=== PATIENT | male | born 1945 | race Caucasian/White ===

== ENCOUNTER → 2019-04-30 | Outpatient (CLI) | payer OTHER ==
[~2019-04-30] MED LIST: FISH1000 OR; GINKGO BILOBA OR; LISI10TA4 OR; PEGASYS SC; VITAMIN C OR; ZEST10TA OD; ZINC220C OR; [UNRECOGNIZED DRUG - OTHER] OR; [UNRECOGNIZED DRUG - OTHER] OR
--- NOTE | 2019-04-30 08:17 | REP ---
Clinical: Hepatitis C. Technique: Real time gold scale ultrasound examination using curved array transducer. Findings: The liver suggests mild fatty infiltration without focal hepatic lesion. The pancreas is unremarkable. Gallbladder is normal and without gallstones, wall thickening, or pericholecystic fluid. No biliary ductal dilatation is appreciated and the common bile duct measures 4.4 mm diameter. The right kidney is normal in reniform shape without hydronephrosis and measures 11.7 x 6.1 x 5.9 cm. Impression: Mild fatty infiltration to the liver suggested. Electronically Signed by Stalin Del Castillo MD 04/30/2019 08:08 A
== END ==
LOC: M RAD 07:12
PROVIDERS: ATTEND Family Medicine
DX: K76.9 Liver disease, unspecified (principal)

== ENCOUNTER 2023-09-09 11:58 | Inpatient (IN) | payer MEDICARE, OTHER ==
[~2023-09-09] VITALS: Ht 175.3 cm; Wt 77.4 kg
[2023-09-09] MEDS ORDERED: METO1TAB32 PO (12:15)
[2023-09-09] MEDS ORDERED: SIMV40TA20 PO (12:15)
[2023-09-09] MEDS: NS 500 ML IV ONE (14:11)
[2023-09-09 14:18] LABS: BASO % 0.2 % (0.0-1.0); EOS # 0.1 10^3/uL (0.0-0.5); EOS % 2.1 % (0.0-3.0); LYMPH # 1.2 10^3/uL (1.5-5.0); LYMPH % 27.8 % (24.0-44.0); MEAN CORPUSCULAR HGB CONC 32.6 g/dl (32.0-36.5); MEAN CORPUSCULAR VOLUME 95.1 fl (80.0-96.0); MONO # 0.6 10^3/uL (0.0-0.8); MONO % 12.6 % (2.0-8.0); NEUTROPHILS # 2.5 10^3/uL (1.5-8.5); NEUTROPHILS % 57.1 % (36.0-66.0); PLATELET COUNT, AUTOMATED 197 10^3/uL (150-450); RED BLOOD COUNT 4.52 10^6/uL (4.30-6.10); WHITE BLOOD COUNT 4.4 10^3/uL (4.0-10.0)
[2023-09-09 14:43] LABS: ALBUMIN 3.4 G/DL (3.2-5.2); ALKALINE PHOSPHATASE 89 U/L (46-116); ALT/SGPT 23 U/L (7.0-40); AST/SGOT 35 U/L (<34); BILIRUBIN,DIRECT 0.1 MG/DL (<0.4); BILIRUBIN,TOTAL 0.3 MG/DL (0.3-1.2); BLOOD UREA NITROGEN 16 MG/DL (9-23); CALCIUM LEVEL 8.8 MG/DL (8.3-10.6); CARBON DIOXIDE LEVEL 29 MMOL/L (20-31); CHLORIDE LEVEL 105 MMOL/L (98-107); CK-MB VALUE MASS 1.3 NG/ML (<3.6); CPK CREATINE PHOSPHOKINASE 56 U/L (46-171); CREATININE FOR GFR 0.72 MG/DL (0.70-1.30); GLOMERULAR FILTRATION RATE > 60.0 (>42); GLUCOSE, FASTING 89 MG/DL (74-106); MB/CK RELATIVE INDEX 2.32 (< OR =4); POTASSIUM SERUM 4.6 MMOL/L (3.5-5.1); SODIUM LEVEL 135 MMOL/L (136-145)
[2023-09-09] MEDS: IPRATROPIUM 0.5MG/ALBUTEROL 2.5MG INH SOL UD 3ML (DUONEB) NEB ONE (14:44)
[2023-09-09 14:45] LABS: THYROXINE (T4) 6.9 UG/DL (4.5-10.9)
[2023-09-09 14:55] LABS: PROCALCITONIN <0.04 ng/ml
[2023-09-09 18:02] VITALS: BP 152/76; TEMP 97.4; O2SAT 98
[2023-09-09] MEDS ORDERED: ODOR100T3 PO (18:12)
[2023-09-09] MEDS ORDERED: EQL50TAB2 PO (18:12)
[2023-09-09] MEDS ORDERED: CHEL50TA2 PO (18:12)
[2023-09-09] MEDS ORDERED: VITA100065 PO (18:12)
[2023-09-09] MEDS ORDERED: VITA200016 PO (18:12)
[2023-09-09] MEDS ORDERED: CO Q10CA PO (18:12)
[2023-09-09] MEDS ORDERED: SYNT50TA PO (18:12)
[2023-09-09] MEDS ORDERED: LISI5TAB11 PO (18:12)
[2023-09-09] MEDS ORDERED: FISH1CAP26 PO (18:12)
[2023-09-09] MEDS ORDERED: MULT-90 PO (18:12)
[2023-09-09] MEDS ORDERED: HOME MED LIST COMPLETE! XX SCH (18:25)
[2023-09-09] MEDS: ALBUTEROL SULFATE 2.5MG/0.5ML INH NEB SOLN NEB SCH (18:59)
[2023-09-09 19:37] VITALS: BP 164/72; TEMP 97.8; O2SAT 99
[2023-09-09] MEDS: SIMVASTATIN 20 MG TAB PO SCH (20:23)
[2023-09-09] MEDS: HEPARIN SOD (PORCINE) 5000UNITS/ML 1ML VIAL/SYRINGE SC SCH (21:29)
[2023-09-09 23:26] VITALS: BP 158/71; TEMP 97.1; O2SAT 99
[2023-09-09] MEDS: BENZONATATE 100MG CAPSULE PO ONE (23:28)
[2023-09-10 03:50] VITALS: BP 157/72; TEMP 97.8; O2SAT 97
[2023-09-10 05:10] LABS: HEMATOCRIT 40.6 % (42.0-52.0); HEMOGLOBIN 13.3 g/dl (13.5-17.5); MEAN CORPUSCULAR HEMOGLOBIN 31.1 pg (27.0-33.0); MEAN CORPUSCULAR HGB CONC 32.8 g/dl (32.0-36.5); MEAN CORPUSCULAR VOLUME 95.1 fl (80.0-96.0); PLATELET COUNT, AUTOMATED 198 10^3/uL (150-450); RED BLOOD COUNT 4.27 10^6/uL (4.30-6.10); WHITE BLOOD COUNT 4.7 10^3/uL (4.0-10.0)
[2023-09-10 05:29] LABS: BLOOD UREA NITROGEN 10 MG/DL (9-23); CALCIUM LEVEL 8.5 MG/DL (8.3-10.6); CARBON DIOXIDE LEVEL 29 MMOL/L (20-31); CHLORIDE LEVEL 106 MMOL/L (98-107); CREATININE FOR GFR 0.66 MG/DL (0.70-1.30); GLOMERULAR FILTRATION RATE > 60.0 (>42); GLUCOSE, FASTING 98 MG/DL (74-106); POTASSIUM SERUM 4.2 MMOL/L (3.5-5.1); SODIUM LEVEL 140 MMOL/L (136-145)
[2023-09-10 07:38] VITALS: BP 152/58; TEMP 97; O2SAT 100
[2023-09-10] MEDS: guaiFENesin ER TABLET 600 MG TAB PO SCH (09:54)
[2023-09-10 12:00] VITALS: BP 137/63; TEMP 97.2; O2SAT 99
[2023-09-10 16:00] VITALS: TEMP 97.8; O2SAT 96
[2023-09-10 19:51] VITALS: BP 148/72; TEMP 97.3; O2SAT 95
[2023-09-10 23:37] VITALS: BP 142/65; TEMP 97.8; O2SAT 98
[2023-09-11 03:33] VITALS: BP 144/66; TEMP 97; O2SAT 99
[2023-09-11] MEDS: LR 1,000 ML IV SCH (06:36)
[2023-09-11 08:10] VITALS: BP 140/60; TEMP 97.1; O2SAT 97
[2023-09-11] MEDS ORDERED: IPRATROPIUM 0.5MG/ALBUTEROL 2.5MG INH SOL UD 3ML (DUONEB) As Ordered ONE (09:54)
[2023-09-11] MEDS: IPRATROPIUM 0.5MG/ALBUTEROL 2.5MG INH SOL UD 3ML (DUONEB) NEB ONE (09:55)
[2023-09-11] MEDS: ceFAZolin SOD 2 GM in IV 1 EA IV ONE (10:11)
[2023-09-11] MEDS ORDERED: dexmedeTOMIDine (4MCG/ML)200MCG/50ML BTL (PRECEDEX) As Ordered ONE (10:33)
[2023-09-11] MEDS ORDERED: MIDAZOLAM INJ 2MG/2ML VIAL As Ordered ONE (10:33)
[2023-09-11] MEDS ORDERED: fentaNYL 100 MCG/2 ML INJECTION As Ordered ONE (10:33)
[2023-09-11] MEDS ORDERED: propofoL 200 MG/20 ML VIAL As Ordered ONE (10:33)
[2023-09-11] MEDS ORDERED: ePHEDrine SULFATE 25 MG/5 ML(5MG/ML) SYRINGE As Ordered ONE (10:33)
[2023-09-11] MEDS ORDERED: LIDOCAINE 2% 100MG/5ML SDV (FOR ANES.) As Ordered ONE (10:33)
[2023-09-11] MEDS ORDERED: ACETAMINOPHEN 1000MG 100ML IV BAG As Ordered ONE (10:33)
[2023-09-11] MEDS: LIDOCAINE 1% SDV 30ML VIAL As Ordered ONE (10:40)
[2023-09-11] MEDS ORDERED: ONDANSETRON 4MG 2ML VIAL IV PRN (11:20)
[2023-09-11] MEDS ORDERED: diphenhydrAMINE 50MG/ML VIAL IV PRN (11:20)
[2023-09-11] MEDS ORDERED: LR 1,000 ML IV SCH (11:20)
[2023-09-11] MEDS ORDERED: ALBUTEROL SULFATE 2.5MG/0.5ML INH NEB SOLN INH PRN (11:20)
[2023-09-11] MEDS ORDERED: METOCLOPRAMIDE INJ 10MG/2ML VIAL IV PRN (11:20)
[2023-09-11] MEDS ORDERED: ALBU8.5H INH (12:04)
[2023-09-11] MEDS ORDERED: MUCI600T31 PO (12:04)
[2023-09-11 12:15] VITALS: BP 142/68; TEMP 97.8; O2SAT 94
[2023-09-11 12:53] VITALS: BP 158/72; TEMP 97.2; O2SAT 93
[2023-09-11 13:40] VITALS: BP 148/62; TEMP 97.3; O2SAT 94
== END 2023-09-11 14:10 | disposition home or self-care (01) | DRG 244 ==
LOC: M ED 11:58 → M ED INP 16:21 → M PCU 17:54
PROVIDERS: ADMIT Internal Medicine; ATTEND Internal Medicine
PROC: 02H63JZ Insertion of Pacemaker Lead into Right Atrium, Percutaneous Approach (ICD-10-PCS; 2023-09-11)
PROC: 02HK3JZ Insertion of Pacemaker Lead into Right Ventricle, Percutaneous Approach (ICD-10-PCS; 2023-09-11)
PROC: 0JH606Z Insertion of Pacemaker, Dual Chamber into Chest Subcutaneous Tissue and Fascia, Open Approach (ICD-10-PCS; principal; 2023-09-11 10:00)
DX: I44.2 Atrioventricular block, complete (principal); I11.9 Hypertensive heart disease without heart failure; E78.5 Hyperlipidemia, unspecified; I25.10 Atherosclerotic heart disease of native coronary artery without angina pectoris; F14.10 Cocaine abuse, uncomplicated; B97.29 Other coronavirus as the cause of diseases classified elsewhere; Z79.899 Other long term (current) drug therapy; Z87.891 Personal history of nicotine dependence; Z95.1 Presence of aortocoronary bypass graft

== ENCOUNTER 2024-01-22 17:57 | Inpatient (IN) | payer MEDICARE, OTHER ==
[~2024-01-22] VITALS: Ht 177.8 cm; Wt 76.6 kg
[~2024-01-22 17:57] MED LIST changes: +ALBU8.5H INH; +CHEL50TA2 PO; +CO Q10CA PO; +EQL50TAB2 PO; +FISH1CAP26 PO; +LISI5TAB11 PO; +METO1TAB32 PO; +MUCI600T31 PO; +MULT-90 PO; +ODOR100T3 PO; +SIMV40TA20 PO; +SYNT50TA PO; +VITA100065 PO; +VITA200016 PO
[2024-01-22 18:35] LABS: BASO % 0.3 % (0.0-1.0); EOS # 0.1 10^3/uL (0.0-0.5); EOS % 0.4 % (0.0-3.0); HEMATOCRIT 44.9 % (42.0-52.0); HEMOGLOBIN 14.8 g/dl (13.5-17.5); LYMPH # 1.5 10^3/uL (1.5-5.0); MEAN CORPUSCULAR HEMOGLOBIN 30.6 pg (27.0-33.0); MONO # 0.8 10^3/uL (0.0-0.8); MONO % 5.8 % (2.0-8.0); NEUTROPHILS # 11.4 10^3/uL (1.5-8.5); PLATELET COUNT, AUTOMATED 219 10^3/uL (150-450); RED BLOOD COUNT 4.83 10^6/uL (4.30-6.10); WHITE BLOOD COUNT 13.9 10^3/uL (4.0-10.0)
[2024-01-22 18:52] LABS: CK-MB VALUE MASS 1.6 NG/ML (<3.6)
[2024-01-22 18:54] LABS: ALBUMIN 3.7 G/DL (3.2-5.2); ALKALINE PHOSPHATASE 104 U/L (46-116); ALT/SGPT 18 U/L (7.0-40); AST/SGOT 19 U/L (<34); BILIRUBIN,DIRECT 0.2 MG/DL (<0.4); BILIRUBIN,TOTAL 0.7 MG/DL (0.3-1.2); BLOOD UREA NITROGEN 12 MG/DL (9-23); CALCIUM LEVEL 8.9 MG/DL (8.3-10.6); CARBON DIOXIDE LEVEL 25 MMOL/L (20-31); CHLORIDE LEVEL 103 MMOL/L (98-107); CPK CREATINE PHOSPHOKINASE 72 U/L (46-171); CREATININE FOR GFR 0.87 MG/DL (0.70-1.30); GLOMERULAR FILTRATION RATE > 60.0 (>42); GLUCOSE, FASTING 142 MG/DL (74-106); MB/CK RELATIVE INDEX 2.22 (< OR =4); POTASSIUM SERUM 4.5 MMOL/L (3.5-5.1); SODIUM LEVEL 136 MMOL/L (136-145); TOTAL PROTEIN 7.4 G/DL (5.7-8.2)
[2024-01-22] MEDS: MIDAZOLAM INJ 2MG/2ML VIAL IV STA (18:55)
[2024-01-22 18:56] LABS: THYROID STIMULATING HORMONE 3.114 uIU/ML (0.55-4.78)
[2024-01-22] MEDS: ACETAMINOPHEN *IV* 1,000 MG in IV 1 EA IV ONE (19:30)
[2024-01-22] MEDS: FUROSEMIDE 100MG/10ML VIAL IV ONE (19:30)
[2024-01-22] MEDS: NS 500 ML IV ONE (19:32)
[2024-01-22] MEDS: MIDAZOLAM INJ 2MG/2ML VIAL IV ONE (19:38)
[2024-01-22 20:07] LABS: CK-MB VALUE MASS 1.4 NG/ML (<3.6)
[2024-01-22 20:11] LABS: MB/CK RELATIVE INDEX 1.77 (< OR =4)
[2024-01-22] MEDS ORDERED: VANCOMYCIN HCL 1,000 MG, VIAL MATE ADAPTER 1 EACH in D5W 250 ML IV ONE (20:20)
[2024-01-22] MEDS ORDERED: ACETAMINOPHEN TAB 650MG DOSE (2X325MG) PO PRN ×2 (20:45→21:05)
[2024-01-22] MEDS: PIPERACILLIN/TAZOBACTAM SOD 4.5 GM in D5W MINI-BAG PLUS 50 ML IV ONE (20:52)
[2024-01-22] MEDS: AZITHROMYCIN INJ 500 MG, VIAL MATE ADAPTER 1 EACH in NS 250 ML IV ONE (20:53)
[2024-01-22] MEDS: NS 1,000 ML IV SCH (20:56)
[2024-01-22] MEDS ORDERED: HOME MED LIST COMPLETE! XX SCH (21:00)
[2024-01-22] MEDS ORDERED: LORazepam 2 MG TAB PO PRN (21:05)
[2024-01-22] MEDS ORDERED: ONDANSETRON 4MG 2ML VIAL IV PRN (21:15)
[2024-01-22 21:18] LABS: PROCALCITONIN 0.05 ng/ml
[2024-01-22 21:21] LABS: AMPHETAMINES LEVEL URINE NEGATIVE (NEGATIVE); BARBITURATES URINE NEGATIVE (NEGATIVE); CANNABINOIDS URINE NEGATIVE (NEGATIVE); METHADONE URINE NEGATIVE (NEGATIVE); OPIATES URINE NEGATIVE (NEGATIVE); PHENCYCLIDINE URINE NEGATIVE (NEGATIVE)
[2024-01-22 21:23] LABS: BENZODIAZEPINES URINE POSITIVE (NEGATIVE); COCAINE METABOLITE URINE POSITIVE (NEGATIVE)
[2024-01-22 21:26] LABS: ABG BASE EXCESS -3.9 (-2.0-2.0); ABG HCO3 20.9 MMOL/L (22.0-26.0); ABG O2 SATURATION 96.7 % (95.0-99.0); ABG PARTIAL PRESSURE CO2 37.4 mmHg (35.0-45.0); ABG PARTIAL PRESSURE O2 95.9 mmHg (75.0-100.0); ABG STANDARD HCO3 21.2 MMOL/L. (22.0-26.0); ABG pH (ARTERIAL) 7.365 UNITS (7.350-7.450)
[2024-01-22 21:43] LABS: MAGNESIUM LEVEL 1.9 MG/DL (1.8-2.4)
[2024-01-22] MEDS: methylPREDNISolone 125MG 2ML VIAL IV SCH (22:01)
[2024-01-22] MEDS: THIAMINE 100 MG TAB PO SCH (22:01)
[2024-01-22] MEDS: ENOXAPARIN 40MG/0.4ML SYRINGE (J1650 PER 10MG) SC SCH (22:01)
[2024-01-22] MEDS: guaiFENesin ER TABLET 600 MG TAB PO SCH (22:03)
[2024-01-22] MEDS: VANCOMYCIN HCL 750 MG, VIAL MATE ADAPTER 1 EACH in D5W 250 ML IV ONE (22:12)
[2024-01-23] VITALS (43 sets, daily range): BP systolic 94–119; BP diastolic 58–78; TEMP 97.9–99.2; O2SAT 85–100
[2024-01-23] MEDS: VANCOMYCIN HCL 750 MG, VIAL MATE ADAPTER 1 EACH in D5W 250 ML IV ONE (00:01)
[2024-01-23] MEDS: IPRATROPIUM 0.5MG/ALBUTEROL 2.5MG INH SOL UD 3ML (DUONEB) NEB SCH (01:14)
[2024-01-23] MEDS: PIPERACILLIN/TAZOBACTAM SOD 4.5 GM in D5W MINI-BAG PLUS 50 ML IV SCH (03:07)
[2024-01-23] MEDS: ALBUTEROL SULFATE 2.5MG/0.5ML INH NEB SOLN NEB PRN (05:40)
[2024-01-23 05:52] LABS: HEMATOCRIT 41.6 % (42.0-52.0); HEMOGLOBIN 13.8 g/dl (13.5-17.5); MEAN CORPUSCULAR HEMOGLOBIN 31.2 pg (27.0-33.0); MEAN CORPUSCULAR HGB CONC 33.2 g/dl (32.0-36.5); MEAN CORPUSCULAR VOLUME 93.9 fl (80.0-96.0); PLATELET COUNT, AUTOMATED 171 10^3/uL (150-450); RED BLOOD COUNT 4.43 10^6/uL (4.30-6.10); WHITE BLOOD COUNT 15.9 10^3/uL (4.0-10.0)
[2024-01-23] MEDS: LEVOTHYROXINE 50MCG TABLET (0.05MG) PO SCH (06:00)
[2024-01-23 06:29] LABS: PROCALCITONIN 8.88 ng/ml
[2024-01-23 06:30] LABS: ALBUMIN 3.3 G/DL (3.2-5.2); ALKALINE PHOSPHATASE 87 U/L (46-116); ALT/SGPT 20 U/L (7.0-40); AST/SGOT 38 U/L (<34); BILIRUBIN,TOTAL 1.2 MG/DL (0.3-1.2); BLOOD UREA NITROGEN 17 MG/DL (9-23); CALCIUM LEVEL 8.5 MG/DL (8.3-10.6); CARBON DIOXIDE LEVEL 26 MMOL/L (20-31); CHLORIDE LEVEL 103 MMOL/L (98-107); CREATININE FOR GFR 1.03 MG/DL (0.70-1.30); GLOMERULAR FILTRATION RATE > 60.0 (>42); GLUCOSE, FASTING 135 MG/DL (74-106); MAGNESIUM LEVEL 1.8 MG/DL (1.8-2.4); POTASSIUM SERUM 4.1 MMOL/L (3.5-5.1); SODIUM LEVEL 136 MMOL/L (136-145); TOTAL PROTEIN 6.4 G/DL (5.7-8.2)
[2024-01-23] MEDS ORDERED: VANCOMYCIN HCL 1,000 MG, VIAL MATE ADAPTER 1 EACH in D5W 250 ML IV SCH (08:00)
[2024-01-23] MEDS ORDERED: ISOVUE-370 76% 100ML VIAL As Ordered ONE (08:22)
[2024-01-23] MEDS ORDERED: AZITHROMYCIN INJ 500 MG, VIAL MATE ADAPTER 1 EACH in NS 250 ML IV SCH (09:00)
[2024-01-23] MEDS: FOLIC ACID 1MG TAB PO SCH (10:10)
[2024-01-23] MEDS: SIMVASTATIN 20 MG TAB PO SCH (10:10)
[2024-01-23] MEDS: MULTIVITAMINS/MINERALS THERAP 1 TAB PO SCH (10:10)
[2024-01-23] MEDS: methylPREDNISolone 40MG 1ML VIAL IV SCH (17:53)
[2024-01-23] MEDS: AZITHROMYCIN 250MG TABLET PO SCH (21:08)
[2024-01-24] VITALS (8 sets, daily range): BP systolic 114–125; BP diastolic 63–77; TEMP 97–97.9; O2SAT 96–98
[2024-01-24 05:57] LABS: BASO % 0.1 % (0.0-1.0); HEMATOCRIT 35.7 % (42.0-52.0); HEMOGLOBIN 11.9 g/dl (13.5-17.5); LYMPH # 1.1 10^3/uL (1.5-5.0); LYMPH % 7.3 % (24.0-44.0); MEAN CORPUSCULAR HGB CONC 33.3 g/dl (32.0-36.5); MONO # 1.1 10^3/uL (0.0-0.8); MONO % 7.6 % (2.0-8.0); NEUTROPHILS # 12.4 10^3/uL (1.5-8.5); NEUTROPHILS % 84.3 % (36.0-66.0); PLATELET COUNT, AUTOMATED 176 10^3/uL (150-450); RED BLOOD COUNT 3.84 10^6/uL (4.30-6.10); WHITE BLOOD COUNT 14.7 10^3/uL (4.0-10.0)
[2024-01-24 06:28] LABS: BLOOD UREA NITROGEN 18 MG/DL (9-23); CARBON DIOXIDE LEVEL 27 MMOL/L (20-31); CHLORIDE LEVEL 107 MMOL/L (98-107); CREATININE FOR GFR 0.86 MG/DL (0.70-1.30); GLOMERULAR FILTRATION RATE > 60.0 (>42); GLUCOSE, FASTING 111 MG/DL (74-106); SODIUM LEVEL 140 MMOL/L (136-145)
[2024-01-25 03:20] VITALS: BP 124/75; TEMP 97.3; O2SAT 95
[2024-01-25 05:13] LABS: HEMOGLOBIN 12.2 g/dl (13.5-17.5); MEAN CORPUSCULAR HEMOGLOBIN 30.9 pg (27.0-33.0); MEAN CORPUSCULAR VOLUME 93.7 fl (80.0-96.0); PLATELET COUNT, AUTOMATED 205 10^3/uL (150-450); RED BLOOD COUNT 3.95 10^6/uL (4.30-6.10); WHITE BLOOD COUNT 13.6 10^3/uL (4.0-10.0)
[2024-01-25 05:40] LABS: ALBUMIN 3.1 G/DL (3.2-5.2); ALKALINE PHOSPHATASE 67 U/L (46-116); ALT/SGPT 19 U/L (7.0-40); AST/SGOT 18 U/L (<34); BILIRUBIN,TOTAL 0.7 MG/DL (0.3-1.2); BLOOD UREA NITROGEN 19 MG/DL (9-23); CALCIUM LEVEL 8.6 MG/DL (8.3-10.6); CARBON DIOXIDE LEVEL 24 MMOL/L (20-31); CHLORIDE LEVEL 108 MMOL/L (98-107); CREATININE FOR GFR 1.14 MG/DL (0.70-1.30); GLOMERULAR FILTRATION RATE > 60.0 (>42); GLUCOSE, FASTING 133 MG/DL (74-106); POTASSIUM SERUM 4.3 MMOL/L (3.5-5.1); SODIUM LEVEL 141 MMOL/L (136-145); TOTAL PROTEIN 6.3 G/DL (5.7-8.2)
[2024-01-25] MEDS: predniSONE 20 MG TAB PO SCH (11:29)
[2024-01-25 11:38] VITALS: BP 138/82; TEMP 97.2; O2SAT 99
[2024-01-25 19:32] VITALS: BP 118/68; TEMP 97.2; O2SAT 97
[2024-01-26 04:00] VITALS: BP 137/86; TEMP 97.2; O2SAT 95
[2024-01-26 06:25] LABS: HEMATOCRIT 38.5 % (42.0-52.0); HEMOGLOBIN 12.5 g/dl (13.5-17.5); MEAN CORPUSCULAR HEMOGLOBIN 31.3 pg (27.0-33.0); MEAN CORPUSCULAR HGB CONC 32.5 g/dl (32.0-36.5); MEAN CORPUSCULAR VOLUME 96.3 fl (80.0-96.0); PLATELET COUNT, AUTOMATED 227 10^3/uL (150-450); WHITE BLOOD COUNT 10.4 10^3/uL (4.0-10.0)
[2024-01-26 06:52] LABS: ALBUMIN 3.3 G/DL (3.2-5.2); ALKALINE PHOSPHATASE 73 U/L (46-116); ALT/SGPT 58 U/L (7.0-40); AST/SGOT 61 U/L (<34); BILIRUBIN,TOTAL 0.8 MG/DL (0.3-1.2); BLOOD UREA NITROGEN 18 MG/DL (9-23); CALCIUM LEVEL 9.4 MG/DL (8.3-10.6); CARBON DIOXIDE LEVEL 25 MMOL/L (20-31); CHLORIDE LEVEL 109 MMOL/L (98-107); CREATININE FOR GFR 0.91 MG/DL (0.70-1.30); GLOMERULAR FILTRATION RATE > 60.0 (>42); GLUCOSE, FASTING 91 MG/DL (74-106); SODIUM LEVEL 141 MMOL/L (136-145); TOTAL PROTEIN 6.8 G/DL (5.7-8.2)
[2024-01-26 07:31] VITALS: BP 136/86; TEMP 97.3; O2SAT 97
[2024-01-26] MEDS: SPIRONOLACTONE 12.5MG PER 1/2 TABLET PO SCH (09:03)
[2024-01-26] MEDS ORDERED: PRED20TA PO (09:19)
[2024-01-26] MEDS ORDERED: ALDA25TA2 PO (09:19)
[2024-01-26] MEDS ORDERED: ENTR1TAB PO (09:19)
[2024-01-26] MEDS ORDERED: CEFD300CAP PO (09:34)
[2024-01-26] MEDS: ENTRESTO 24-26MG TABLET (SACUBITRIL/VALSARTAN) PO SCH (10:24)
== END 2024-01-26 11:18 | disposition home or self-care (01) | DRG 871 ==
LOC: M ED 17:57 → EDBD 17:57 → M ED INP 20:43 → M PCU 01-23 00:24
PROVIDERS: ADMIT Preventive Medicine Undersea and Hyperbaric Medicine; ATTEND Preventive Medicine Undersea and Hyperbaric Medicine
PROC: B246ZZZ Ultrasonography of Right and Left Heart (ICD-10-PCS; principal; 2024-01-24)
DX: A41.9 Sepsis, unspecified organism (principal); J96.01 Acute respiratory failure with hypoxia; J15.69 Pneumonia due to other Gram-negative bacteria; I50.32 Chronic diastolic (congestive) heart failure; R04.2 Hemoptysis; I11.0 Hypertensive heart disease with heart failure; J98.4 Other disorders of lung; E03.9 Hypothyroidism, unspecified; E78.5 Hyperlipidemia, unspecified; I34.0 Nonrheumatic mitral (valve) insufficiency; F10.20 Alcohol dependence, uncomplicated; F14.10 Cocaine abuse, uncomplicated; I25.10 Atherosclerotic heart disease of native coronary artery without angina pectoris; Z95.5 Presence of coronary angioplasty implant and graft; Z95.0 Presence of cardiac pacemaker; Z71.41 Alcohol abuse counseling and surveillance of alcoholic; Z79.890 Hormone replacement therapy; Z79.899 Other long term (current) drug therapy

== ENCOUNTER → 2024-01-31 | Outpatient (CLI) | payer MEDICARE, OTHER ==
[~2024-01-31] MED LIST changes: +ALDA25TA2 PO; +CEFD300CAP PO; +ENTR1TAB PO; +PRED20TA PO
[2024-01-31 11:08] LABS: HEMATOCRIT 44.9 % (42.0-52.0); HEMOGLOBIN 14.4 g/dl (13.5-17.5); MEAN CORPUSCULAR HEMOGLOBIN 30.4 pg (27.0-33.0); MEAN CORPUSCULAR HGB CONC 32.1 g/dl (32.0-36.5); MEAN CORPUSCULAR VOLUME 94.9 fl (80.0-96.0); PLATELET COUNT, AUTOMATED 225 10^3/uL (150-450); RED BLOOD COUNT 4.73 10^6/uL (4.30-6.10)
[2024-01-31 11:23] LABS: ALBUMIN 3.4 G/DL (3.2-5.2); ALKALINE PHOSPHATASE 67 U/L (46-116); ALT/SGPT 53 U/L (7.0-40); AST/SGOT 27 U/L (<34); BILIRUBIN,TOTAL 0.8 MG/DL (0.3-1.2); BLOOD UREA NITROGEN 17 MG/DL (9-23); CALCIUM LEVEL 8.5 MG/DL (8.3-10.6); CARBON DIOXIDE LEVEL 26 MMOL/L (20-31); CHLORIDE LEVEL 104 MMOL/L (98-107); CREATININE FOR GFR 0.83 MG/DL (0.70-1.30); GLOMERULAR FILTRATION RATE > 60.0 (>42); GLUCOSE, FASTING 104 MG/DL (74-106); POTASSIUM SERUM 4.1 MMOL/L (3.5-5.1); SODIUM LEVEL 137 MMOL/L (136-145); TOTAL PROTEIN 6.7 G/DL (5.7-8.2)
[2024-01-31 11:26] LABS: THYROID STIMULATING HORMONE 1.689 uIU/ML (0.55-4.78)
== END ==
LOC: M LAB 10:03
PROVIDERS: ATTEND Internal Medicine Cardiovascular Disease
DX: I48.91 Unspecified atrial fibrillation (principal); R94.31 Abnormal electrocardiogram [ECG] [EKG]; R06.02 Shortness of breath

== ENCOUNTER → 2024-03-16 | Outpatient (CLI) | payer MEDICARE, OTHER ==
[2024-03-16 09:16] LABS: BASO % 0.7 % (0.0-1.0); EOS # 0.1 10^3/uL (0.0-0.5); EOS % 1.4 % (0.0-3.0); HEMATOCRIT 42.6 % (42.0-52.0); HEMOGLOBIN 13.9 g/dl (13.5-17.5); LYMPH # 1.1 10^3/uL (1.5-5.0); LYMPH % 17.9 % (24.0-44.0); MEAN CORPUSCULAR HEMOGLOBIN 30.5 pg (27.0-33.0); MEAN CORPUSCULAR HGB CONC 32.6 g/dl (32.0-36.5); MEAN CORPUSCULAR VOLUME 93.6 fl (80.0-96.0); MONO # 0.5 10^3/uL (0.0-0.8); NEUTROPHILS # 4.2 10^3/uL (1.5-8.5); NEUTROPHILS % 70.8 % (36.0-66.0); PLATELET COUNT, AUTOMATED 227 10^3/uL (150-450); RED BLOOD COUNT 4.55 10^6/uL (4.30-6.10); WHITE BLOOD COUNT 5.9 10^3/uL (4.0-10.0)
[2024-03-16 09:39] LABS: ALBUMIN 3.9 G/DL (3.2-5.2); BLOOD UREA NITROGEN 14 MG/DL (9-23); CALCIUM LEVEL 8.9 MG/DL (8.3-10.6); CARBON DIOXIDE LEVEL 24 MMOL/L (20-31); CHLORIDE LEVEL 106 MMOL/L (98-107); CREATININE FOR GFR 0.97 MG/DL (0.70-1.30); GLOMERULAR FILTRATION RATE > 60.0 (>42); GLUCOSE, FASTING 102 MG/DL (74-106); PHOSPHORUS LEVEL 3.7 MG/DL (2.4-5.1); POTASSIUM SERUM 4.3 MMOL/L (3.5-5.1); SODIUM LEVEL 136 MMOL/L (136-145)
== END ==
LOC: M LAB 08:36
PROVIDERS: ATTEND Internal Medicine Cardiovascular Disease
DX: I48.91 Unspecified atrial fibrillation (principal); I11.0 Hypertensive heart disease with heart failure; I50.22 Chronic systolic (congestive) heart failure; I34.0 Nonrheumatic mitral (valve) insufficiency

== ENCOUNTER → 2024-04-12 | Outpatient (CLI) | payer MEDICARE, OTHER | LOC: M PLAIMG 10:49 | PROVIDERS: ATTEND Psychiatry & Neurology Neurology | DX: G31.84 Mild cognitive impairment of uncertain or unknown etiology (principal); G30.1 Alzheimer's disease with late onset ==

== ENCOUNTER → 2024-04-17 | Outpatient (CLI) | payer MEDICARE, OTHER ==
[2024-04-17 10:46] LABS: BASO % 0.4 % (0.0-1.0); EOS % 0.7 % (0.0-3.0); HEMATOCRIT 44.4 % (42.0-52.0); HEMOGLOBIN 14.2 g/dl (13.5-17.5); LYMPH # 1.1 10^3/uL (1.5-5.0); LYMPH % 20.4 % (24.0-44.0); MEAN CORPUSCULAR HEMOGLOBIN 30.8 pg (27.0-33.0); MEAN CORPUSCULAR VOLUME 96.3 fl (80.0-96.0); MONO # 0.5 10^3/uL (0.0-0.8); MONO % 9.2 % (2.0-8.0); NEUTROPHILS # 3.7 10^3/uL (1.5-8.5); NEUTROPHILS % 68.9 % (36.0-66.0); PLATELET COUNT, AUTOMATED 210 10^3/uL (150-450); RED BLOOD COUNT 4.61 10^6/uL (4.30-6.10); WHITE BLOOD COUNT 5.4 10^3/uL (4.0-10.0)
[2024-04-17 11:10] LABS: ALBUMIN 3.6 G/DL (3.2-5.2); BLOOD UREA NITROGEN 15 MG/DL (9-23); CALCIUM LEVEL 9.1 MG/DL (8.3-10.6); CARBON DIOXIDE LEVEL 30 MMOL/L (20-31); CHLORIDE LEVEL 108 MMOL/L (98-107); CREATININE FOR GFR 0.88 MG/DL (0.70-1.30); GLOMERULAR FILTRATION RATE > 60.0 (>42); GLUCOSE, FASTING 94 MG/DL (74-106); PHOSPHORUS LEVEL 3.3 MG/DL (2.4-5.1); POTASSIUM SERUM 4.6 MMOL/L (3.5-5.1); SODIUM LEVEL 140 MMOL/L (136-145)
== END ==
LOC: M LAB 09:41
PROVIDERS: ATTEND Internal Medicine Cardiovascular Disease
DX: I48.91 Unspecified atrial fibrillation (principal); I11.0 Hypertensive heart disease with heart failure; I50.22 Chronic systolic (congestive) heart failure; I34.0 Nonrheumatic mitral (valve) insufficiency

== ENCOUNTER → 2024-06-06 | Outpatient (REF) | payer MEDICARE, OTHER ==
[2024-06-06 13:12] LABS: APPEARANCE, URINE CLEAR (CLEAR); BACTERIA, URINE AUTO NEGATIVE (NEGATIVE); BILIRUBIN, URINE AUTO NEGATIVE (NEGATIVE); BLOOD, URINE BLOOD NEGATIVE (NEGATIVE); COLOR, URINE YELLOW (YELLOW); GLUCOSE, URINE (UA) AUTO NEGATIVE (NEGATIVE); KETONE, URINE AUTO TRACE mg/dL (NEGATIVE); LEUKOCYTE ESTERASE, URINE AUTO NEGATIVE (NEGATIVE); MUCUS, URINE SMALL (NEGATIVE); NITRITE, URINE AUTO NEGATIVE (NEGATIVE); PROTEIN, URINE AUTO NEGATIVE (NEGATIVE); RBC, URINE AUTO 2 /HPF (0-3); SPECIFIC GRAVITY URINE AUTO 1.025 (1.002-1.035); SQUAMOUS EPITHELIAL CELL UR AU 0 /HPF (0-6); UROBILINOGEN, URINE AUTO 0.2 mg/dL (0.0-2.0); WBC, URINE AUTO 0 /HPF (0-3)
== END ==
LOC: M SMT 12:36
PROVIDERS: ATTEND Nurse Practitioner Family
DX: R35.0 Frequency of micturition (principal)

== ENCOUNTER → 2024-06-18 | Outpatient (CLI) | payer MEDICARE, OTHER | LOC: M LAB 08:39 → M RAD 08:39 | PROVIDERS: ATTEND Nurse Practitioner Adult Health | DX: Z12.5 Encounter for screening for malignant neoplasm of prostate (principal) | CPT/HCPCS: 36415; G0103 ==

== ENCOUNTER → 2024-08-21 | Outpatient (CLI) | payer MEDICARE, OTHER ==
[2024-08-21 09:00] LABS: BASO % 0.4 % (0.0-1.0); EOS # 0.1 10^3/uL (0.0-0.5); EOS % 1.1 % (0.0-3.0); HEMATOCRIT 40.3 % (42.0-52.0); LYMPH # 0.8 10^3/uL (1.5-5.0); LYMPH % 15.3 % (24.0-44.0); MEAN CORPUSCULAR HEMOGLOBIN 32.1 pg (27.0-33.0); MEAN CORPUSCULAR HGB CONC 32.3 g/dl (32.0-36.5); MEAN CORPUSCULAR VOLUME 99.5 fl (80.0-96.0); MONO # 0.6 10^3/uL (0.0-0.8); MONO % 10.6 % (2.0-8.0); NEUTROPHILS # 3.9 10^3/uL (1.5-8.5); NEUTROPHILS % 72.2 % (36.0-66.0); PLATELET COUNT, AUTOMATED 191 10^3/uL (150-450); RED BLOOD COUNT 4.05 10^6/uL (4.30-6.10); WHITE BLOOD COUNT 5.4 10^3/uL (4.0-10.0)
[2024-08-21 09:31] LABS: ALBUMIN 3.7 G/DL (3.2-5.2); ALKALINE PHOSPHATASE 68 U/L (40-129); ALT/SGPT 25 U/L (7.0-40); AST/SGOT 24 U/L (<34); BILIRUBIN,TOTAL 0.7 MG/DL (0.3-1.2); BLOOD UREA NITROGEN 20 MG/DL (9-23); CALCIUM LEVEL 9.2 MG/DL (8.3-10.6); CARBON DIOXIDE LEVEL 28 MMOL/L (20-31); CHLORIDE LEVEL 102 MMOL/L (98-107); CHOLESTEROL LEVEL 158 MG/DL (<200); CREATININE FOR GFR 1.17 MG/DL (0.70-1.30); GLOMERULAR FILTRATION RATE > 60.0 (>42); GLUCOSE, FASTING 88 MG/DL (74-106); HDL CHOLESTEROL 83.1 MG/DL (>40); LDL CHOLESTEROL 62.9 MG/DL (<100); NON-HDL-C 74.9 MG/DL; POTASSIUM SERUM 4.5 MMOL/L (3.5-5.1); SODIUM LEVEL 138 MMOL/L (136-145); TRIGLYCERIDES LEVEL 60 MG/DL (<150)
== END ==
LOC: M LAB 08:31
PROVIDERS: ATTEND Registered Nurse
DX: I25.10 Atherosclerotic heart disease of native coronary artery without angina pectoris (principal); I50.22 Chronic systolic (congestive) heart failure

== ENCOUNTER → 2024-08-22 | Outpatient (CLI) | payer MEDICARE, OTHER ==
[2024-08-22 14:00] LABS: THYROID STIMULATING HORMONE 3.909 uIU/ML (0.55-4.78)
[2024-08-22 14:01] LABS: FOLATE 20.66 NG/ML (>5.4)
== END ==
LOC: M LAB 09:41
PROVIDERS: ATTEND Psychiatry & Neurology Neurology
DX: R41.3 Other amnesia (principal); E53.8 Deficiency of other specified B group vitamins; E51.9 Thiamine deficiency, unspecified; E53.1 Pyridoxine deficiency; E56.0 Deficiency of vitamin E

== ENCOUNTER → 2025-01-03 | Outpatient (CLI) | payer MEDICARE, OTHER ==
[~2025-01-03] MED LIST changes: -EQL50TAB2 PO; +ISOVUE-370 76% 100 ML VIAL As Ordered ONE; +MEMA10TA PO; +VITA1TAB82 PO
== END ==
LOC: M RAD 12:25
PROVIDERS: ATTEND Internal Medicine Medical Oncology
DX: K76.89 Other specified diseases of liver (principal); K57.30 Diverticulosis of large intestine without perforation or abscess without bleeding; N20.0 Calculus of kidney; J90 Pleural effusion, not elsewhere classified
CPT/HCPCS: 74170; Q9967

== ENCOUNTER → 2025-01-09 | Outpatient (POV) | payer MEDICARE, OTHER ==
[~2025-01-09] VITALS: Ht 175.3 cm; Wt 85.5 kg
[~2025-01-09] MED LIST changes: -ISOVUE-370 76% 100 ML VIAL As Ordered ONE
[2025-01-09 10:05] VITALS: BP 124/62; O2SAT 99
== END ==
LOC: M IRPOV 09:52
PROVIDERS: ATTEND Radiology Diagnostic Radiology
DX: K76.89 Other specified diseases of liver (principal); I70.0 Atherosclerosis of aorta; Z79.899 Other long term (current) drug therapy; Z86.19 Personal history of other infectious and parasitic diseases; Z87.891 Personal history of nicotine dependence; Z95.0 Presence of cardiac pacemaker

== ENCOUNTER → 2025-01-14 | Outpatient (CLI) | payer MEDICARE, OTHER ==
[~2025-01-14] MED LIST changes: +ACETAMINOPHEN 325 MG TAB PO PRN; +LIDOCAINE 1% MDV 20 ML VIAL SC SCH; +PERCOCET 5MG/325MG TAB PO PRN
[2025-01-14 10:37] VITALS: TEMP 97.2
[2025-01-14] MEDS: NS (Normal Saline) 0.9% 1,000 ML IV SCH (11:00)
[2025-01-14 11:54] VITALS: BP 109/71; O2SAT 96
[2025-01-14] MEDS: MIDAZOLAM INJ 2 MG/2 ML VIAL IV PRN (12:15)
== END ==
LOC: M IRPRO 10:04
PROVIDERS: ATTEND Radiology Diagnostic Radiology
DX: K76.89 Other specified diseases of liver (principal)

== ENCOUNTER → 2025-01-23 | Outpatient (POV) | payer MEDICARE, OTHER ==
[~2025-01-23] VITALS: Ht 175.3 cm; Wt 84.1 kg
[~2025-01-23] MED LIST changes: -ACETAMINOPHEN 325 MG TAB PO PRN; -LIDOCAINE 1% MDV 20 ML VIAL SC SCH; -PERCOCET 5MG/325MG TAB PO PRN
[2025-01-23 08:20] VITALS: BP 128/72; O2SAT 98
== END ==
LOC: M IRPOV 07:39
PROVIDERS: ATTEND Radiology Diagnostic Radiology
DX: C22.0 Liver cell carcinoma (principal); I70.0 Atherosclerosis of aorta; Z80.49 Family history of malignant neoplasm of other genital organs; Z86.19 Personal history of other infectious and parasitic diseases; Z87.891 Personal history of nicotine dependence; Z95.0 Presence of cardiac pacemaker

== ENCOUNTER → 2025-02-01 | Outpatient (CLI) | payer MEDICARE, OTHER | LOC: M RAD 12:11 | PROVIDERS: ATTEND Internal Medicine Hematology & Oncology | DX: C22.8 Malignant neoplasm of liver, primary, unspecified as to type (principal) | CPT/HCPCS: 78306; A9503 ==

== ENCOUNTER → 2025-02-06 | Outpatient (CLI) | payer MEDICARE, OTHER | LOC: M PLAIMG 09:23 | PROVIDERS: ATTEND Thoracic Surgery (Cardiothoracic Vascular Surgery) | DX: R59.0 Localized enlarged lymph nodes (principal); R91.1 Solitary pulmonary nodule; R91.8 Other nonspecific abnormal finding of lung field; K76.89 Other specified diseases of liver; I31.39 Other pericardial effusion (noninflammatory) ==

== ENCOUNTER → 2025-02-18 | Outpatient (CLI) | payer MEDICARE, OTHER | LOC: M PLARAD 08:46 | PROVIDERS: ATTEND Internal Medicine Medical Oncology | DX: C22.0 Liver cell carcinoma (principal) | CPT/HCPCS: 78815; A9552 ==

== ENCOUNTER 2025-04-16 23:07 | Emergency (ER) | payer MEDICARE, OTHER ==
[~2025-04-16] VITALS: Ht 175.3 cm; Wt 85.9 kg
[~2025-04-16 23:07] MED LIST changes: +MACR100C43 PO; +ONDA-84 PO; +PROC10TA5 PO; +T E MIS MC
[2025-04-17 00:10] LABS: INR 1.26
[2025-04-17 00:11] LABS: BASO # 0.0 10^3/uL (0.0-0.2); BASO % 0.5 % (0.0-1.0); CALCIUM LEVEL 8.5 MG/DL (8.3-10.6); CARBON DIOXIDE LEVEL 27.0 MMOL/L (20-31); CHLORIDE LEVEL 100.0 MMOL/L (98-107); CK-MB VALUE MASS 2.1 NG/ML (<3.6); CREATININE FOR GFR 0.92 MG/DL (0.70-1.30); EOS # 0.0 10^3/uL (0.0-0.5); EOS % 0.6 % (0.0-3.0); GLOMERULAR FILTRATION RATE 85.1 (>42); LYMPH # 0.5 10^3/uL (1.5-5.0); LYMPH % 8.1 % (24.0-44.0); MONO # 0.7 10^3/uL (0.0-0.8); MONO % 10.1 % (2.0-8.0); NEUTROPHILS # 5.2 10^3/uL (1.5-8.5); NEUTROPHILS % 80.1 % (36.0-66.0); PLATELET COUNT, AUTOMATED 240 10^3/uL (150-450); POTASSIUM SERUM 4.6 MMOL/L (3.5-5.1); SODIUM LEVEL 136.0 MMOL/L (136-145)
[2025-04-17 00:18] LABS: CPK CREATINE PHOSPHOKINASE 74.0 U/L (46-171); MB/CK RELATIVE INDEX 2.83 (< OR =4)
[2025-04-17 00:51] LABS: ALT/SGPT 18.0 U/L (7.0-40); AST/SGOT 143.0 U/L (<34)
[2025-04-17] MEDS: NS (Normal Saline) 0.9% 1,000 ML IV ONE (02:46)
[2025-04-17] MEDS: KETOROLAC 30 MG/ML 1 ML VIAL IV ONE (02:46)
[2025-04-17 04:14] VITALS: BP 131/75; TEMP 98; O2SAT 95
== END 2025-04-17 04:18 | disposition home or self-care (01) ==
LOC: M ED 23:07
DX: R51.9 Headache, unspecified (principal); C79.51 Secondary malignant neoplasm of bone; G89.3 Neoplasm related pain (acute) (chronic); C22.0 Liver cell carcinoma; I45.81 Long QT syndrome; K21.9 Gastro-esophageal reflux disease without esophagitis; E78.5 Hyperlipidemia, unspecified; F12.10 Cannabis abuse, uncomplicated; F10.10 Alcohol abuse, uncomplicated
CPT/HCPCS: 70450; 71045; 73060; 80048; 80076; 82140; 82550; 82553; 83605; 84443; 84484; 85025; 85610; 87486; 87581; 87633; 87798; 93005; 93041; 93971; 94760; 96361; 96374; 99285; J1885

== ENCOUNTER → 2025-04-30 | Outpatient (CLI) | payer MEDICARE, OTHER ==
[~2025-04-30] VITALS: Ht 175.3 cm; Wt 79.9 kg
[~2025-04-30] MED LIST changes: +BUSP5TA PO; +OXYC-517 PO; +PERCOCET PO; +TRAZ-252 PO
[2025-04-30 09:29] VITALS: BP 146/80; O2SAT 96
== END ==
LOC: M PAL 09:11
PROVIDERS: ATTEND Physician Assistant
DX: Z51.5 Encounter for palliative care (principal); Z66 Do not resuscitate; C22.0 Liver cell carcinoma; C79.51 Secondary malignant neoplasm of bone; I25.10 Atherosclerotic heart disease of native coronary artery without angina pectoris; Z79.891 Long term (current) use of opiate analgesic; I10 Essential (primary) hypertension; E78.49 Other hyperlipidemia; F41.9 Anxiety disorder, unspecified; I05.9 Rheumatic mitral valve disease, unspecified; G47.00 Insomnia, unspecified; Z79.899 Other long term (current) drug therapy; Z79.02 Long term (current) use of antithrombotics/antiplatelets

== ENCOUNTER 2025-05-14 03:16 | Inpatient (IN) | payer MEDICARE, OTHER ==
[~2025-05-14] VITALS: Ht 175.3 cm; Wt 85.9 kg
[2025-05-14] MEDS: NS (Normal Saline) 0.9% 1,000 ML IV ONE (04:25)
[2025-05-14] MEDS ORDERED: ISOVUE-370 76% 100 ML VIAL As Ordered ONE (08:38)
[2025-05-14] MEDS: ALBUTEROL SULFATE 2.5 MG/0.5 ML INH CONCENTRATE NEB SOLN INH ONE (09:00)
[2025-05-14] MEDS: IPRATROPIUM 0.5 MG/ALBUTEROL 2.5 MG INH SOL UD 3 ML NEB ONE (09:01)
[2025-05-14 09:37] LABS: BASO # 0.0 10^3/uL (0.0-0.2); BASO % 0.5 % (0.0-1.0); EOS # 0.0 10^3/uL (0.0-0.5); EOS % 0.4 % (0.0-3.0); LYMPH # 0.5 10^3/uL (1.5-5.0); LYMPH % 6.3 % (24.0-44.0); MONO # 0.5 10^3/uL (0.0-0.8); MONO % 6.1 % (2.0-8.0); NEUTROPHILS # 6.3 10^3/uL (1.5-8.5); NEUTROPHILS % 86.4 % (36.0-66.0); PLATELET COUNT, AUTOMATED 275 10^3/uL (150-450)
[2025-05-14 09:39] LABS: CHLORIDE LEVEL 99.0 MMOL/L (98-107); CREATININE FOR GFR 0.99 MG/DL (0.70-1.30); GLOMERULAR FILTRATION RATE 78.0 (>42); POTASSIUM SERUM 4.7 MMOL/L (3.5-5.1); SODIUM LEVEL 134.0 MMOL/L (136-145)
[2025-05-14 09:40] LABS: ALT/SGPT 23.0 U/L (7.0-40); AST/SGOT 126.0 U/L (<34); CALCIUM LEVEL 9.7 MG/DL (8.3-10.6); CARBON DIOXIDE LEVEL 22.0 MMOL/L (20-31); MAGNESIUM LEVEL 1.8 MG/DL (1.8-2.4)
[2025-05-14] MEDS: PIPERACILLIN/TAZOBACTAM SOD 4.5 GM in DEXTROSE 5% (D5W) ADV/MINI-BAG 50 ML IV ONE (11:14)
[2025-05-14] MEDS ORDERED: SPIR-10 PO (12:21)
[2025-05-14] MEDS ORDERED: ENTR1TAB PO (12:21)
[2025-05-14] MEDS ORDERED: PROC10TA5 PO (12:21)
[2025-05-14] MEDS ORDERED: ONDA-83 PO (12:21)
[2025-05-14] MEDS ORDERED: TRAZ-252 PO (12:21)
[2025-05-14] MEDS ORDERED: HOME MED LIST COMPLETE! XX SCH (12:25)
[2025-05-14] MEDS ORDERED: PIPERACILLIN/TAZOBACTAM SOD 3.375 GM in DEXTROSE 5% (D5W) ADV/MINI-BAG 50 ML IV SCH (15:40)
[2025-05-14] MEDS ORDERED: PROCHLORPERAZINE 5MG TAB PO PRN (16:05)
[2025-05-14] MEDS ORDERED: ONDANSETRON 4MG TAB PO PRN (16:05)
[2025-05-14 16:35] VITALS: BP 110/68
[2025-05-14 16:38] VITALS: BP 110/68; TEMP 98.3; O2SAT 94
[2025-05-14] MEDS: NS (Normal Saline) 0.9% 1,000 ML IV SCH (17:27)
[2025-05-14] MEDS: THIAMINE 100 MG TAB PO SCH (17:44)
[2025-05-14] MEDS: PIPERACILLIN/TAZOBACTAM SOD 3.375 GM in DEXTROSE 5% (D5W) ADV/MINI-BAG 50 ML IV SCH (17:44)
[2025-05-14] MEDS: VANCOMYCIN HCL 1,750 MG, VIAL MATE ADAPTER 1 EACH in NS 500 ML IV ONE (20:26)
[2025-05-14] MEDS: traZODone 50 MG TAB PO SCH (20:27)
[2025-05-14 21:02] VITALS: BP 104/58; TEMP 97.9; O2SAT 94
[2025-05-15 06:10] VITALS: BP 118/61; TEMP 97.8; O2SAT 91
[2025-05-15 06:37] LABS: CALCIUM LEVEL 9.2 MG/DL (8.3-10.6); CARBON DIOXIDE LEVEL 22.0 MMOL/L (20-31); CHLORIDE LEVEL 105.0 MMOL/L (98-107); CREATININE FOR GFR 0.91 MG/DL (0.70-1.30); GLOMERULAR FILTRATION RATE 86.3 (>42); POTASSIUM SERUM 4.5 MMOL/L (3.5-5.1); SODIUM LEVEL 137.0 MMOL/L (136-145)
[2025-05-15 06:51] LABS: PLATELET COUNT, AUTOMATED 226 10^3/uL (150-450)
[2025-05-15 06:52] LABS: INR 1.27
[2025-05-15 08:40] VITALS: BP 118/62
[2025-05-15] MEDS: VANCOMYCIN HCL 1,000 MG, VIAL MATE ADAPTER 1 EACH in NS 250 ML IV SCH (08:40)
[2025-05-15] MEDS: ENOXAPARIN 40 MG/0.4 ML SYRINGE (J1650 PER 10MG) SC SCH (09:02)
[2025-05-15] MEDS: MULTIVITAMINS/MINERALS THERAP 1 TAB PO SCH (09:03)
[2025-05-15] MEDS: busPIRone 5 MG TAB PO SCH (09:03)
[2025-05-15] MEDS: FOLIC ACID 1 MG TAB PO SCH (09:03)
[2025-05-15] MEDS: SPIRONOLACTONE 12.5MG PER 1/2 TABLET PO SCH (09:03)
[2025-05-15 09:46] VITALS: BP 118/62; TEMP 98.2; O2SAT 95
[2025-05-15 14:26] VITALS: BP 102/54; TEMP 98.1; O2SAT 94
[2025-05-15 20:41] VITALS: BP 119/16; TEMP 98.1; O2SAT 94
[2025-05-15] MEDS ORDERED: NYSTATIN 100,000 UNITS/GM TOPICAL PWD 15 GM TOP PRN (21:00)
[2025-05-16 06:14] VITALS: BP 113/61; TEMP 98.1; O2SAT 96
[2025-05-16 07:16] LABS: PLATELET COUNT, AUTOMATED 240 10^3/uL (150-450)
[2025-05-16 07:33] LABS: CALCIUM LEVEL 9.1 MG/DL (8.3-10.6); CARBON DIOXIDE LEVEL 22.0 MMOL/L (20-31); CHLORIDE LEVEL 104.0 MMOL/L (98-107); CREATININE FOR GFR 0.88 MG/DL (0.70-1.30); GLOMERULAR FILTRATION RATE 88.0 (>42); POTASSIUM SERUM 4.3 MMOL/L (3.5-5.1); SODIUM LEVEL 136.0 MMOL/L (136-145)
[2025-05-16 14:00] VITALS: BP 128/72; TEMP 97.9; O2SAT 94
[2025-05-16 20:34] VITALS: BP 121/68; TEMP 98; O2SAT 95
[2025-05-17 04:25] VITALS: BP 135/73
[2025-05-17 05:30] VITALS: BP 116/62; TEMP 98.2; O2SAT 92
[2025-05-17 06:22] VITALS: TEMP 98.3
[2025-05-17 07:29] LABS: PLATELET COUNT, AUTOMATED 247 10^3/uL (150-450)
[2025-05-17 07:54] LABS: CALCIUM LEVEL 8.7 MG/DL (8.3-10.6); CARBON DIOXIDE LEVEL 20 MMOL/L (20-31); CHLORIDE LEVEL 100 MMOL/L (98-107); CREATININE FOR GFR 0.81 MG/DL (0.70-1.30); GLOMERULAR FILTRATION RATE > 90.0 (>42); POTASSIUM SERUM 4.1 MMOL/L (3.5-5.1); SODIUM LEVEL 133 MMOL/L (136-145)
[2025-05-17 09:00] VITALS: BP 116/62
[2025-05-17 09:49] VITALS: BP 122/76; TEMP 98; O2SAT 94
[2025-05-17 10:15] LABS: BASO # 0.0 10^3/uL (0.0-0.2); BASO % 0.4 % (0.0-1.0); EOS # 0.0 10^3/uL (0.0-0.5); EOS % 0.0 % (0.0-3.0); LYMPH # 0.3 10^3/uL (1.5-5.0); LYMPH % 3.9 % (24.0-44.0); MONO # 0.4 10^3/uL (0.0-0.8); MONO % 4.8 % (2.0-8.0); NEUTROPHILS # 7.3 10^3/uL (1.5-8.5); NEUTROPHILS % 90.0 % (36.0-66.0); PLATELET COUNT, AUTOMATED 246 10^3/uL (150-450)
[2025-05-17 10:46] LABS: INR 1.07
[2025-05-17 10:56] LABS: VENOUS BASE EXCESS -2.9 (-2.0-2.0); VENOUS HCO3 20.3 MMOL/L (23.0-27.0); VENOUS O2 SATURATION 98.6 % (60.0-80.0); VENOUS PARTIAL PRESSURE CO2 31.4 mmHg (38.0-50.0); VENOUS PARTIAL PRESSURE O2 134.2 mmHg (30.0-50.0); VENOUS PH 7.429 UNITS (7.330-7.430); VENOUS STANDARD HCO3 22.1 MMOL/L; VENOUS TOTAL CO2 21.3 MMOL/L (24.0-28.0)
[2025-05-17 11:08] LABS: ALT/SGPT 23 U/L (7.0-40); AST/SGOT 148 U/L (<34); CALCIUM LEVEL 8.9 MG/DL (8.3-10.6); CARBON DIOXIDE LEVEL 19 MMOL/L (20-31); CHLORIDE LEVEL 102 MMOL/L (98-107); CREATININE FOR GFR 0.80 MG/DL (0.70-1.30); GLOMERULAR FILTRATION RATE > 90.0 (>42); POTASSIUM SERUM 4.5 MMOL/L (3.5-5.1); SODIUM LEVEL 134 MMOL/L (136-145)
[2025-05-17 11:35] VITALS: BP 122/74; O2SAT 95
[2025-05-17] MEDS ORDERED: POLYVINYL ALCOHOL OPHTH SOLN 15ML (LIQUITEARS) OU PRN (13:50)
[2025-05-17] MEDS ORDERED: ATROPINE SULFATE 1% OPHTH SOLN 2 ML BTL SL PRN (13:50)
[2025-05-17] MEDS ORDERED: SALIVA SUBSTITUTE BTL MT PRN (13:50)
[2025-05-17] MEDS ORDERED: LORazepam 1 MG TAB PO PRN (13:50)
[2025-05-17] MEDS ORDERED: ONDANSETRON 4MG ORAL DISINTEGRATING TAB PO PRN (13:50)
[2025-05-17] MEDS: MORPHINE 10 MG/0.5 ML ORAL CONCENTRATE SOLUTION U/D SL PRN (17:13)
[2025-05-19] MEDS: SCOPOLAMINE 1MG TRANSDERMAL PATCH TOP SCH (08:22)
[2025-05-20] MEDS: HYOSCYAMINE SULFATE 0.125 MG SUBL TABLET SL PRN (09:23)
== END 2025-05-20 10:30 | disposition expired | DRG 871 ==
LOC: M ED 03:16 → M ED INP 15:37 → M MS5PR 16:17 → M PCU 05-17 10:10 → M MSPAV 05-17 15:37
PROVIDERS: ADMIT Student in an Organized Health Care Education/Training Program; ATTEND Student in an Organized Health Care Education/Training Program
DX: A41.9 Sepsis, unspecified organism (principal); J96.01 Acute respiratory failure with hypoxia; J15.212 Pneumonia due to Methicillin resistant Staphylococcus aureus; I63.9 Cerebral infarction, unspecified; G93.41 Metabolic encephalopathy; C22.0 Liver cell carcinoma; C79.51 Secondary malignant neoplasm of bone; D84.821 Immunodeficiency due to drugs; J90 Pleural effusion, not elsewhere classified; E87.20 Acidosis, unspecified; C78.7 Secondary malignant neoplasm of liver and intrahepatic bile duct; I25.10 Atherosclerotic heart disease of native coronary artery without angina pectoris; I10 Essential (primary) hypertension; T45.1X5A Adverse effect of antineoplastic and immunosuppressive drugs, initial encounter; I44.0 Atrioventricular block, first degree; F10.10 Alcohol abuse, uncomplicated; L89.312 Pressure ulcer of right buttock, stage 2; E78.5 Hyperlipidemia, unspecified; Z51.5 Encounter for palliative care; Z66 Do not resuscitate; Z95.0 Presence of cardiac pacemaker; Z87.891 Personal history of nicotine dependence; Z79.899 Other long term (current) drug therapy; Z92.21 Personal history of antineoplastic chemotherapy; Z99.81 Dependence on supplemental oxygen